=== PATIENT | female | born 1975 | race Asian ===

== ENCOUNTER → 2025-07-09 | Outpatient (CLI) | payer BC, SELFPAY ==
--- NOTE | 2025-07-09 07:15 | XR_ITS ---
Examination: Pelvic ultrasound, transabdominal, complete Technique: Transabdominal ultrasound of the pelvis performed using grayscale imaging Date and time of exam: July 09 June 09, 2002 5, 0725 hours INDICATIONS: Diagnosis estrogen excess FINDINGS: Uterus 8.8 cm, intrauterine device satisfactory position Endometrial stripe 0.4 cm No uterine mass or intrauterine gestation Right ovary 3.6 cm arterial flow 29 x 14 x 20 mm simple cyst Left ovary obscured by bowel gas IMPRESSION: Intrauterine device satisfactory position No uterine mass or intrauterine gestation Right ovarian simple cyst 29 x 14 x 20 mm
--- NOTE | 2025-07-09 07:15 | XR_ITS ---
Examination: Transvaginal ultrasound of the pelvis, complete Technique: Transvaginal sonographic images pelvis performed using hutton scale imaging Exam date and time: July 09, 2025, 0735 hours INDICATIONS: Diagnosis estrogen excess FINDINGS: Uterus 9.0 cm intrauterine device satisfactory position No uterine mass Endometrial stripe 0.4 cm Right ovary 3.8 cm arterial flow, 3.3 x 2.2 x 2.8 cm cyst Left ovary 2.1 cm arterial flow IMPRESSION: Right ovarian simple cyst 3.3 x 2.2 x 2.8 cm.
== END | disposition home or self-care (01) ==
LOC: CDIM 07:07
PROVIDERS: PCP Family Medicine; Referring Provider Nurse Practitioner; Visit Provider Nurse Practitioner
DX: N83.291 Other ovarian cyst, right side (principal)
CPT/HCPCS: 76830; 76856